=== PATIENT | female | born 1955 | race Two or more races ===

== ENCOUNTER → 2018-04-26 | Outpatient (CLI) | payer OTHER ==
[~2018-04-26] MED LIST: EVISTA60 MG PO; VITAMIN D400 UNI2
== END | disposition home or self-care (01) ==
LOC: NUCLEAR 07:00
DX: K80.20 Calculus of gallbladder without cholecystitis without obstruction (principal); R10.13 Epigastric pain
CPT/HCPCS: A9537; 78227

== ENCOUNTER → 2018-05-21 | Day surgery (SDC) | payer OTHER ==
[~2018-05-21] MED LIST changes: +PERCOCET 5-3251 EACH PO
== END | disposition home or self-care (01) ==
LOC: ADM 05-17 09:15 → CIR.AMB 08:15
DX: K80.10 Calculus of gallbladder with chronic cholecystitis without obstruction (principal)

== ENCOUNTER 2018-07-23 06:55 | Emergency (ER) | payer OTHER ==
[~2018-07-23] VITALS: Ht 152.4 cm; Wt 62.6 kg
[2018-07-23] MEDS ORDERED: VITAMIN D1000 UNIT (07:13)
[2018-07-23] MEDS ORDERED: CALTRATE 600 +1 EACH (07:13)
== END 2018-07-23 14:16 | disposition home or self-care (01) ==
LOC: ER 06:55
DX: R42 Dizziness and giddiness (principal)

== ENCOUNTER 2022-09-07 11:53 | Emergency (ER) | payer OTHER ==
[~2022-09-07] VITALS: Ht 152.4 cm; Wt 58.1 kg
[~2022-09-07 11:53] MED LIST changes: +CALTRATE 600 +1 EACH; +VITAMIN D1000 UNIT
[2022-09-07] MEDS ORDERED: ALLER-TEC10 MG PO (14:14)
[2022-09-07] MEDS ORDERED: MEDROLPACK PO (14:14)
== END 2022-09-07 15:45 | disposition home or self-care (01) ==
LOC: ER 11:53
DX: R21 Rash and other nonspecific skin eruption (principal); Z88.6 Allergy status to analgesic agent; Z88.0 Allergy status to penicillin